=== PATIENT | female | born 1965 | race Two or more races ===

== ENCOUNTER 2017-05-21 18:19 | Inpatient (IN) | payer MEDICAID ==
[~2017-05-21] VITALS: Ht 160 cm; Wt 78.1 kg
[2017-05-21 20:14] LABS: Hematocrit 42.7 % (36.0-46.0); Hemoglobin 14.6 g/dL (12.2-16.2); Mean Corpuscular Hemoglobin 30.3 pg (28.0-32.0); Mean Corpuscular Hgb Conc. 34.3 g/dL (32.0-36.0); Mean Corpuscular Volume 88.6 fL (80.0-100.0); Mean Platelet Volume 8.4 fL (6.9-10.8); Platelet Count (auto) 406 10^3/uL (140-450); Red Cell Distribution Width 12.4 % (11.8-14.3); White Blood Cell 16.6 10^3/uL (4.4-10.8)
[2017-05-21 20:28] LABS: Metamyelocytes % 0; Myelocytes % 0; Promyelocytes % 0; Reactive Lymphocytes 0
[2017-05-21 20:29] LABS: Partial Thromboplastin Time 30.3 sec (22.64-33.71); Prothrombin Time 10.9 sec (9.37-12.3)
[2017-05-21 20:46] LABS: Albumin 3.1 g/dL (3.4-5.0); Alkaline Phosphatase 130 U/L (45-117); Amylase 16 U/L (25-115); Anion Gap 10 (5-15); Aspartate Aminotransferase 12 U/L (15-37); BUN/Creatinine Ratio 11.1; Bilirubin, Total 0.8 mg/dL (0.2-1.0); Blood Urea Nitrogen 8 mg/dL (7-18); Calcium 9.2 mg/dL (8.5-10.1); Carbon Dioxide 25 mmol/L (21-32); Chloride 96 mmol/L (98-107); GFR African American 109 mL/min; GFR Non-African American 90 mL/min; Glucose 203 mg/dL (74-106); Magnesium 2.3 mg/dL (1.6-2.6); Potassium 4.2 mmol/L (3.5-5.1); Sodium 131 mmol/L (136-145); Total Protein 8.9 g/dL (6.4-8.2)
[2017-05-21 20:47] LABS: Giant Platelets Few; Platelet Estimate Adequate
[2017-05-21 20:48] LABS: Platelet Clumps FEW
[2017-05-21 20:49] LABS: Stomatocytes Few
[2017-05-21 22:40] LABS: Lactic Acid w/Reflex 2.2 mmol/L (0.4-2.0)
[2017-05-21 22:44] LABS: REFLEX LACTIC ACID YES OR NO YES
[2017-05-21] MEDS ORDERED: MORPHINE SULF INJ 2 MG/ML SYRINGE 1ML IV ONE (22:45)
[2017-05-21] MEDS ORDERED: cefTRIAXone 1GM/50ML D5W 50 ML IV ONE (22:45)
[2017-05-21] MEDS ORDERED: ONDANSETRON HCL 4 MG/2 ML VIAL IV ONE (22:45)
[2017-05-21] MEDS ORDERED: VANCOMYCIN 1GM/250ML D5W 250 ML IV ONE (22:45)
[2017-05-22] VITALS (10 sets, daily range): BP systolic 88–110; BP diastolic 47–62
[2017-05-22] MEDS ORDERED: MORPHINE SULF INJ 2 MG/ML SYRINGE 1ML IV PRN ×2 (00:30→16:15)
[2017-05-22] MEDS ORDERED: VANCOMYCIN PER PHARMACY 0 MG IV SCH (00:30)
[2017-05-22] MEDS ORDERED: ONDANSETRON HCL 4 MG/2 ML VIAL IV PRN (00:30)
[2017-05-22] MEDS ORDERED: ACETAMINOPHEN 500 MG TAB PO PRN (00:30)
[2017-05-22] MEDS ORDERED: metroNIDAZOLE 500MG/100ML 100 ML IV ONE (00:30)
[2017-05-22] MEDS ORDERED: SODIUM CHLORIDE 0.9% 1,000 ML IV ONE ×2 (00:45→04:15)
[2017-05-22] MEDS ORDERED: DEXTROSE (50%) 50ML SYRG IV PRN ×2 (00:45→16:15)
[2017-05-22] MEDS ORDERED: SODIUM CHLORIDE 0.9% 2,300 ML IV ONE (04:15)
[2017-05-22] MEDS ORDERED: GLIP-116 PO (04:54)
[2017-05-22] MEDS ORDERED: METF-372 PO (04:54)
[2017-05-22] MEDS ORDERED: INSUINJ2 SC (04:54)
[2017-05-22 06:12] LABS: Urine RBC None Seen /hpf (0 - 4)
[2017-05-22] MEDS: ACCU-CHEK COMFORT CURVE STRIP VI SCH ×4 (06:33→23:44)
[2017-05-22] MEDS: InsuLIN REG 1unit/0.01ml Soln (100units/ml) SC SCH ×4 (06:34→23:48)
[2017-05-22 06:40] LABS: Urine Bilirubin Negative (Negative); Urine Blood Negative /uL (Negative); Urine Color Yellow (Yellow); Urine Glucose 1+ mg/dL (Normal); Urine Ketone 1+ (Negative); Urine Mucus FEW (None Seen); Urine Nitrite Negative (Negative); Urine Squamous Epithelial Cell MOD /hpf (<5); Urine Urobilinogen Normal (Negative)
[2017-05-22] MEDS ORDERED: SUCCINYLCHOLINE CHLORIDE 20 MG/ML 10ML VIAL IV ONE (07:18)
[2017-05-22] MEDS ORDERED: fentaNYL CITRATE 100 MCG/2 ML VL ONE ×2 (07:20→09:03)
[2017-05-22] MEDS ORDERED: MIDAZOLAM HCL 1MG/1ML-2 ML VIAL ONE (07:21)
[2017-05-22] MEDS ORDERED: SODIUM CHLORIDE LOCK 20 ML ONE (07:22)
[2017-05-22] MEDS ORDERED: ONDANSETRON HCL 4 MG/2 ML VIAL ONE (07:22)
[2017-05-22] MEDS ORDERED: ROCURONIUM 10MG/ML 10ML VIAL IV ONE (07:22)
[2017-05-22] MEDS ORDERED: MEPERIDINE HCL (50 MG/ML) 1 ML VIAL ONE (07:22)
[2017-05-22] MEDS ORDERED: cefTRIAXone SOD 1,000 MG VL ONE (07:44)
[2017-05-22] MEDS ORDERED: HYDROmorphone HCL 2 MG/ML VL IV PRN (07:45)
[2017-05-22] MEDS ORDERED: METOCLOPRAMIDE HCL 5MG/ml INJ 2ml VIAL IV ONE (07:45)
[2017-05-22] MEDS ORDERED: ACCU-CHEK COMFORT CURVE STRIP VI ONE (07:45)
[2017-05-22] MEDS ORDERED: KETOROLAC TROMETH 30 MG/ML 1ML VIAL IV ONE (07:45)
[2017-05-22] MEDS ORDERED: LIDOCAINE 1% HCL (LOCAL ANESTH.) INJ 20ML MDV ONE (08:05)
[2017-05-22] MEDS ORDERED: BUPIVACAINE 0.25% INJ 50ML VIAL ONE (08:06)
[2017-05-22] MEDS ORDERED: BUPIVACAINE W/ EPINEPH 0.25% INJ 50ML MDV ONE (08:06)
[2017-05-22] MEDS ORDERED: LIDOCAINE W/ EPINEPHRINE 1 % INJ 30ML ONE (08:06)
[2017-05-22] MEDS ORDERED: NEOSTIGMINE 1 MG/ML INJ (10mg/10ML VIAL) ONE (08:29)
[2017-05-22] MEDS ORDERED: KETOROLAC TROMETH 60MG/2ML VIAL IM ONE (08:29)
[2017-05-22] MEDS ORDERED: GLYCOPYRROLATE 0.2 MG/ML 1ML VIAL ONE (08:29)
[2017-05-22] MEDS ORDERED: ceFAZolin 1GM VL ONE (09:16)
[2017-05-22] MEDS ORDERED: PPN PER PHARMACY 0 ML IV SCH (10:15)
[2017-05-22] MEDS: VANCOMYCIN 1GM/250ML D5W 250 ML IV SCH ×2 (11:26→23:17)
[2017-05-22 11:27] LABS: Hematocrit 39.2 % (36.0-46.0); Hemoglobin 12.9 g/dL (12.2-16.2); Mean Corpuscular Hemoglobin 29.7 pg (28.0-32.0); Mean Corpuscular Volume 90.2 fL (80.0-100.0); Mean Platelet Volume 8.3 fL (6.9-10.8); Platelet Count (auto) 307 10^3/uL (140-450); Red Cell Distribution Width 12.7 % (11.8-14.3); White Blood Cell 18.2 10^3/uL (4.4-10.8)
[2017-05-22 11:57] LABS: Metamyelocytes % 0; Myelocytes % 0; Promyelocytes % 0; Reactive Lymphocytes 0
[2017-05-22 12:03] LABS: Albumin 2.2 g/dL (3.4-5.0); BUN/Creatinine Ratio 10.4; Bilirubin, Total 1.2 mg/dL (0.2-1.0); Calcium 7.5 mg/dL (8.5-10.1); Potassium 4.3 mmol/L (3.5-5.1); Total Protein 6.8 g/dL (6.4-8.2)
[2017-05-22 12:08] LABS: Magnesium 1.9 mg/dL (1.6-2.6)
[2017-05-22 12:48] LABS: Platelet Estimate Adequate
[2017-05-22] MEDS ORDERED: DEXTROSE (50%) 50ML SYRG IV SCH (20:00)
[2017-05-22] MEDS ORDERED: PPN PER PHARMACY IV NR ×10 (20:00)
[2017-05-23] MEDS ORDERED: ACCU-CHEK COMFORT CURVE STRIP VI SCH
[2017-05-23] MEDS ORDERED: InsuLIN REG 1unit/0.01ml Soln (100units/ml) SC SCH
[2017-05-23 04:28] VITALS: BP 102/47
[2017-05-23] MEDS: InsuLIN REG 1unit/0.01ml Soln (100units/ml) SC SCH ×4 (05:48→23:57)
[2017-05-23] MEDS: ACCU-CHEK COMFORT CURVE STRIP VI SCH ×4 (05:48→23:57)
[2017-05-23 06:32] LABS: Basophils # (auto) 0 uL; Basophils % (auto) 0.1 % (0.0-2.0); Eosinophils # (auto) 0 uL; Hemoglobin 11.5 g/dL (12.2-16.2); Lymphocytes # (auto) 0.9 uL; Lymphocytes % (auto) 5.1 % (10.0-50.0); Mean Corpuscular Hemoglobin 29.2 pg (28.0-32.0); Mean Corpuscular Hgb Conc. 32.8 g/dL (32.0-36.0); Mean Corpuscular Volume 88.9 fL (80.0-100.0); Mean Platelet Volume 9.1 fL (6.9-10.8); Monocytes # (auto) 0.6 uL; Monocytes % (auto) 3.4 % (0.0-12.0); Neutrophils % (auto) 91.4 % (37.0-80.0); Platelet Count (auto) 333 10^3/uL (140-450); Red Cell Distribution Width 12.2 % (11.8-14.3); White Blood Cell 17.5 10^3/uL (4.4-10.8)
[2017-05-23 06:50] LABS: Albumin 2.1 g/dL (3.4-5.0); Calcium 8.7 mg/dL (8.5-10.1); Magnesium 2.7 mg/dL (1.6-2.6)
[2017-05-23 06:53] LABS: BUN/Creatinine Ratio 17.2
[2017-05-23 06:55] LABS: Bilirubin, Total 1.1 mg/dL (0.2-1.0); Total Protein 6.4 g/dL (6.4-8.2)
[2017-05-23] MEDS ORDERED: ETOMIDATE (2MG/ML) 20ML VIAL IV ONE (07:52)
[2017-05-23 08:00] VITALS: BP 118/56
[2017-05-23 08:00] LABS: Phosphorus 1.5 mg/dL (2.5-4.90)
[2017-05-23] MEDS: PIPERACILLIN-TAZOB 3.375GM/D5W100ML IV SCH ×3 (08:57→20:05)
[2017-05-23 09:00] VITALS: BP 118/56
[2017-05-23] MEDS ORDERED: metroNIDAZOLE 250MG/50 ML 50 ML IV ONE (10:00)
[2017-05-23] MEDS ORDERED: SODIUM PHOSP 20MEQ(15MMOL) IN NS 100 ML IV ONE (11:15)
[2017-05-23] MEDS: VANCOMYCIN 1GM/250ML D5W 250 ML IV SCH ×2 (12:10→23:10)
[2017-05-23 13:00] VITALS: BP 110/64
[2017-05-23] MEDS: metroNIDAZOLE 250MG/50 ML 50 ML IV SCH ×2 (15:57→21:52)
[2017-05-23 17:44] VITALS: BP 132/49
[2017-05-23] MEDS ORDERED: PPN PER PHARMACY IV NR ×8 (20:00)
[2017-05-23 22:08] VITALS: BP 105/52
[2017-05-24] MEDS: PIPERACILLIN-TAZOB 3.375GM/D5W100ML IV SCH ×4 (01:32→20:00)
[2017-05-24 04:42] VITALS: BP 118/57
[2017-05-24] MEDS: metroNIDAZOLE 250MG/50 ML 50 ML IV SCH ×3 (05:33→21:49)
[2017-05-24] MEDS: ACCU-CHEK COMFORT CURVE STRIP VI SCH ×4 (05:34→21:57)
[2017-05-24] MEDS: InsuLIN REG 1unit/0.01ml Soln (100units/ml) SC SCH ×4 (05:34→22:18)
[2017-05-24 06:16] LABS: Basophils # (auto) 0 uL; Basophils % (auto) 0.2 % (0.0-2.0); Eosinophils # (auto) 0 uL; Eosinophils % (auto) 0.2 % (0.0-7.0); Hematocrit 33.3 % (36.0-46.0); Hemoglobin 11.1 g/dL (12.2-16.2); Lymphocytes # (auto) 2.4 uL; Lymphocytes % (auto) 17.9 % (10.0-50.0); Mean Corpuscular Hemoglobin 29.6 pg (28.0-32.0); Mean Corpuscular Hgb Conc. 33.3 g/dL (32.0-36.0); Monocytes # (auto) 0.6 uL; Monocytes % (auto) 4.1 % (0.0-12.0); Neutrophils # (auto) 10.6 uL; Neutrophils % (auto) 77.6 % (37.0-80.0); Platelet Count (auto) 334 10^3/uL (140-450); Red Cell Distribution Width 12.5 % (11.8-14.3); White Blood Cell 13.6 10^3/uL (4.4-10.8)
[2017-05-24 07:01] LABS: BUN/Creatinine Ratio 18.8; Bilirubin, Total 0.6 mg/dL (0.2-1.0); Magnesium 2.2 mg/dL (1.6-2.6); Potassium 3.4 mmol/L (3.5-5.1); Total Protein 6.4 g/dL (6.4-8.2)
[2017-05-24 08:00] VITALS: BP 116/67
[2017-05-24 08:23] VITALS: BP 116/67
[2017-05-24] MEDS ORDERED: POTASSIUM PHOSPHATE 44 MEQ in SODIUM CHL 0.9% 250 ML IV ONE (09:30)
[2017-05-24] MEDS ORDERED: POTASSIUM CHLORIDE 40 MEQ, LIDOCAINE 1% (LOCAL ANESTH.) 4 ML in SODIUM CHL 0.9% 250 ML IV ONE (10:30)
[2017-05-24] MEDS: VANCOMYCIN 1GM/250ML D5W 250 ML IV SCH (10:52)
[2017-05-24 13:00] VITALS: BP 120/56
[2017-05-24] MEDS ORDERED: DEXTROSE (50%) 50ML SYRG IV PRN (14:30)
[2017-05-24 16:58] VITALS: BP 126/73
[2017-05-24] MEDS ORDERED: PPN PER PHARMACY IV NR ×11 (20:00)
[2017-05-24 22:10] VITALS: BP 117/85
[2017-05-25] MEDS: PIPERACILLIN-TAZOB 3.375GM/D5W100ML IV SCH ×4 (02:04→20:25)
[2017-05-25] MEDS: HYDROcodone-ACET 5/325MG TAB PO PRN ×3 (02:04→22:34)
[2017-05-25 05:05] VITALS: BP 120/66
[2017-05-25] MEDS: metroNIDAZOLE 250MG/50 ML 50 ML IV SCH ×3 (06:00→22:34)
[2017-05-25 06:31] LABS: Basophils # (auto) 0.1 uL; Basophils % (auto) 0.6 % (0.0-2.0); Eosinophils # (auto) 0 uL; Eosinophils % (auto) 0.3 % (0.0-7.0); Hematocrit 37.6 % (36.0-46.0); Hemoglobin 12.6 g/dL (12.2-16.2); Lymphocytes # (auto) 1.8 uL; Lymphocytes % (auto) 18.3 % (10.0-50.0); Mean Corpuscular Hemoglobin 29.6 pg (28.0-32.0); Mean Corpuscular Hgb Conc. 33.5 g/dL (32.0-36.0); Mean Corpuscular Volume 88.1 fL (80.0-100.0); Monocytes # (auto) 0.6 uL; Monocytes % (auto) 6.3 % (0.0-12.0); Neutrophils # (auto) 7.3 uL; Neutrophils % (auto) 74.5 % (37.0-80.0); Platelet Count (auto) 409 10^3/uL (140-450); Red Cell Distribution Width 12.8 % (11.8-14.3); White Blood Cell 9.8 10^3/uL (4.4-10.8)
[2017-05-25] MEDS: ACCU-CHEK COMFORT CURVE STRIP VI SCH ×4 (06:44→22:18)
[2017-05-25] MEDS: InsuLIN REG 1unit/0.01ml Soln (100units/ml) SC SCH ×4 (06:46→22:34)
[2017-05-25 07:06] LABS: Albumin 2.2 g/dL (3.4-5.0); BUN/Creatinine Ratio 15.2; Bilirubin, Total 0.7 mg/dL (0.2-1.0); Calcium 8.6 mg/dL (8.5-10.1); Magnesium 1.9 mg/dL (1.6-2.6); Phosphorus 3.2 mg/dL (2.5-4.90); Potassium 3.4 mmol/L (3.5-5.1)
[2017-05-25 08:07] VITALS: BP 121/65
[2017-05-25] MEDS ORDERED: POTASSIUM CHLORIDE 40 MEQ, LIDOCAINE 1% (LOCAL ANESTH.) 4 ML in SODIUM CHL 0.9% 250 ML IV ONE (11:00)
[2017-05-25 13:16] VITALS: BP 134/68
[2017-05-25 16:53] VITALS: BP 123/62
[2017-05-25 21:57] VITALS: BP 112/57
[2017-05-26] MEDS: PIPERACILLIN-TAZOB 3.375GM/D5W100ML IV SCH ×3 (02:29→14:00)
[2017-05-26 05:12] VITALS: BP 111/56
[2017-05-26 05:45] LABS: Basophils # (auto) 0 uL; Basophils % (auto) 0.3 % (0.0-2.0); Eosinophils # (auto) 0.1 uL; Eosinophils % (auto) 1.7 % (0.0-7.0); Hematocrit 38.4 % (36.0-46.0); Lymphocytes # (auto) 2.4 uL; Lymphocytes % (auto) 27.9 % (10.0-50.0); Mean Corpuscular Hemoglobin 29.8 pg (28.0-32.0); Mean Corpuscular Hgb Conc. 33.9 g/dL (32.0-36.0); Mean Corpuscular Volume 87.9 fL (80.0-100.0); Mean Platelet Volume 8.6 fL (6.9-10.8); Monocytes # (auto) 0.5 uL; Monocytes % (auto) 6.1 % (0.0-12.0); Neutrophils # (auto) 5.5 uL; Platelet Count (auto) 450 10^3/uL (140-450); Red Cell Distribution Width 12.5 % (11.8-14.3); White Blood Cell 8.5 10^3/uL (4.4-10.8)
[2017-05-26 06:00] LABS: Albumin 2.2 g/dL (3.4-5.0); BUN/Creatinine Ratio 9.6; Calcium 8.5 mg/dL (8.5-10.1); Potassium 3.6 mmol/L (3.5-5.1)
[2017-05-26 06:03] LABS: Bilirubin, Total 0.8 mg/dL (0.2-1.0); Total Protein 6.7 g/dL (6.4-8.2)
[2017-05-26] MEDS: ACCU-CHEK COMFORT CURVE STRIP VI SCH ×2 (06:21→11:07)
[2017-05-26] MEDS: InsuLIN REG 1unit/0.01ml Soln (100units/ml) SC SCH ×2 (06:33→11:07)
[2017-05-26] MEDS: metroNIDAZOLE 250MG/50 ML 50 ML IV SCH ×2 (06:48→14:00)
[2017-05-26 09:57] VITALS: BP 121/79
[2017-05-26 11:58] VITALS: BP 121/58
[2017-05-26] MEDS: HYDROcodone-ACET 5/325MG TAB PO PRN (14:11)
== END 2017-05-26 16:32 | disposition home or self-care (01) | DRG 710 ==
LOC: ER 18:19 → WEST WING 18:20 → TELE-WESTW 05-22 11:21
PROVIDERS: ADMIT Nurse Practitioner Family; ATTEND Internal Medicine
PROC: 0DJD4ZZ Inspection of Lower Intestinal Tract, Percutaneous Endoscopic Approach (ICD-10-PCS; 2017-05-22)
PROC: 0DN80ZZ Release Small Intestine, Open Approach (ICD-10-PCS; 2017-05-22)
PROC: 0DTJ0ZZ Resection of Appendix, Open Approach (ICD-10-PCS; principal; 2017-05-22 07:52)
DX: A41.9 Sepsis, unspecified organism (principal); E43 Unspecified severe protein-calorie malnutrition; E87.1 Hypo-osmolality and hyponatremia; K35.3 Acute appendicitis with localized peritonitis; K59.00 Constipation, unspecified; K66.0 Peritoneal adhesions (postprocedural) (postinfection); E11.9 Type 2 diabetes mellitus without complications; Z68.30 Body mass index [BMI] 30.0-30.9, adult; Z79.84 Long term (current) use of oral hypoglycemic drugs
CPT/HCPCS: 36415; 71010; 74176; 80053; 80202; 81001; 81025; 82040; 82150; 82962; 83036; 83605; 83690; 83735; 84100; 84478; 84484; 84702; 85007; 85025; 85027; 85610; 85730; 87040; 93005; 96365; 96367; 96375; J0330; J0690; J0696; J1815; J1885; J2001; J2250; J2405; J2543; J3490

== ENCOUNTER 2018-11-27 20:06 | Emergency (ER) | payer MEDICAID ==
[~2018-11-27] VITALS: Ht 162.6 cm; Wt 70.8 kg
[~2018-11-27 20:06] MED LIST: GLIP-116 PO; INSUINJ2 SC; METF-372 PO
[2018-11-27 21:14] LABS: Basophils # (auto) 0 uL; Basophils % (auto) 0.4 % (0.0-2.0); Eosinophils # (auto) 0.1 uL; Eosinophils % (auto) 1.6 % (0.0-7.0); Hemoglobin 15.5 g/dL (12.2-16.2); Lymphocytes # (auto) 2.1 uL; Lymphocytes % (auto) 30.5 % (10.0-50.0); Mean Corpuscular Hemoglobin 29.9 pg (28.0-32.0); Mean Corpuscular Hgb Conc. 33.8 g/dL (32.0-36.0); Mean Corpuscular Volume 88.6 fL (80.0-100.0); Monocytes # (auto) 0.3 uL; Monocytes % (auto) 4.8 % (0.0-12.0); Neutrophils # (auto) 4.4 uL; Neutrophils % (auto) 62.7 % (37.0-80.0); Nucleated Red Blood Cells % 0.1 %; Platelet Count (auto) 291 10^3/uL (140-450); Red Cell Distribution Width 12.5 % (11.8-14.3)
[2018-11-27 21:26] LABS: Albumin 3.8 g/dL (3.4-5.0); Calcium 9.2 mg/dL (8.5-10.1); Potassium 3.9 mmol/L (3.5-5.1)
[2018-11-27 21:28] LABS: BUN/Creatinine Ratio 20.7
[2018-11-27 21:30] LABS: INR 0.88 (0.9-1.15); Partial Thromboplastin Time 24.3 sec (23.78-33.04); Prothrombin Time 9.5 sec (9.27-12.13)
[2018-11-27 21:31] LABS: Bilirubin, Total 0.4 mg/dL (0.2-1.0); Total Protein 8.6 g/dL (6.4-8.2)
[2018-11-28 06:24] VITALS: BP 100/61
== END 2018-11-28 06:25 | disposition home or self-care (01) ==
LOC: ER 20:09
DX: G51.0 Bell's palsy (principal); M47.892 Other spondylosis, cervical region; E11.65 Type 2 diabetes mellitus with hyperglycemia
CPT/HCPCS: 36415; 70450; 72125; 80053; 82962; 85025; 85610; 85730; 94761

== ENCOUNTER → 2023-03-27 | Outpatient (CLI) | payer MEDICAID ==
[~2023-03-27] MED LIST changes: -GLIP-116 PO; +GLIP10TA9 PO
[2023-03-27 12:18] LABS: Folate (Folic Acid) 17.26 ng/mL (5.38-24)
[2023-03-27 12:23] LABS: Urine Bacteria FEW /hpf (None Seen); Urine Blood Negative /uL (Negative); Urine Mucus FEW (None Seen); Urine Specific Gravity 1.029 (1.001-1.035); Urine WBC 4 /hpf (0 - 5)
[2023-03-27 12:28] LABS: Potassium 3.9 mmol/L (3.5-5.1)
[2023-03-27 12:41] LABS: Albumin 3.6 g/dL (3.4-5.0); BUN/Creatinine Ratio 14.6 (10.0-20.0); Bilirubin, Total 0.6 mg/dL (0.2-1.0); Calcium 9.2 mg/dL (8.5-10.1)
[2023-03-27 12:59] LABS: Micro Albumin 31.4 mg/L (0-30.0)
== END | disposition home or self-care (01) ==
LOC: LAB 11:10
PROVIDERS: ATTEND Student in an Organized Health Care Education/Training Program
DX: Z12.11 Encounter for screening for malignant neoplasm of colon (principal); E78.5 Hyperlipidemia, unspecified; E11.65 Type 2 diabetes mellitus with hyperglycemia; Z86.39 Personal history of other endocrine, nutritional and metabolic disease; Z79.899 Other long term (current) drug therapy
CPT/HCPCS: 36415; 80053; 80061; 81001; 82043; 82306; 82570; 82607; 82746; 83036; 84436; 84443

== ENCOUNTER → 2023-08-11 | Outpatient (CLI) | payer MEDICAID ==
[2023-08-11 12:54] LABS: Basophils # (auto) 0 10 ^3/uL (0-0.2); Basophils % (auto) 0.3 % (0.0-2.0); Eosinophils # (auto) 0.2 10 ^3/uL (0-0.8); Eosinophils % (auto) 3.2 % (0.0-7.0); Hematocrit 45.7 % (36.0-46.0); Hemoglobin 15.2 g/dL (12.2-16.2); Lymphocytes % (auto) 28.4 % (10.0-50.0); Mean Corpuscular Hgb Conc. 33.3 g/dL (32.0-36.0); Mean Corpuscular Volume 90.1 fL (80.0-100.0); Monocytes # (auto) 0.4 10 ^3/uL (0-1.3); Monocytes % (auto) 5.8 % (0.0-12.0); Neutrophils # (auto) 4.3 10 ^3/uL (1.6-8.6); Neutrophils % (auto) 62.3 % (37.0-80.0); Nucleated Red Blood Cells % 0.1 %; Red Blood Cells 5.07 10^6/uL (4.0-5.20); Red Cell Distribution Width 12.9 % (11.8-14.3); White Blood Cell 6.9 10^3/uL (4.4-10.8)
[2023-08-11 13:40] LABS: Alanine Aminotransferase 34 U/L (7-40); Albumin 4.4 g/dL (3.2-4.8); Alkaline Phosphatase 83 U/L (46-116); Anion Gap 10 (5-15); Aspartate Aminotransferase 25 U/L (13-40); BUN/Creatinine Ratio 12.7 (10.0-20.0); Bilirubin, Total 0.7 mg/dL (0.2-1.0); Blood Urea Nitrogen 10 mg/dL (9-23); Calcium 9.6 mg/dL (8.5-10.1); Carbon Dioxide 24 mmol/L (20-30); Chloride 107 mmol/L (98-107); Cholesterol 176 mg/dL (< 200); Glucose 138 mg/dL (74-106); HDL Cholesterol 39 mg/dL (40-59); LDL Cholesterol 121 mg/dL (< 100); Potassium 4.7 mmol/L (3.5-5.1); Sodium 141 mmol/L (136-145); Total Protein 7.6 g/dL (5.7-8.2); Triglycerides 150 mg/dL (< 150)
[2023-08-11 15:50] LABS: Urine Bacteria NONE SEEN /hpf (None Seen); Urine Blood Negative /uL (Negative); Urine Clarity HAZY (Clear); Urine Color Yellow (Yellow); Urine Hyaline Cast FEW /lpf (0 - 2); Urine Mucus FEW (None Seen); Urine Protein, UAD 1+ (Negative); Urine Specific Gravity 1.023 (1.001-1.035); Urine Urobilinogen Normal (Negative); Urine WBC 35 /hpf (0 - 5); Urine pH 5.5 (5.0-8.0)
== END | disposition home or self-care (01) ==
LOC: LAB 12:38
PROVIDERS: ATTEND Student in an Organized Health Care Education/Training Program
DX: E11.42 Type 2 diabetes mellitus with diabetic polyneuropathy (principal); E11.65 Type 2 diabetes mellitus with hyperglycemia; E03.9 Hypothyroidism, unspecified
CPT/HCPCS: 36415; 80053; 80061; 81001; 82306; 83036; 84436; 84443; 85025

== ENCOUNTER → 2024-08-01 | Outpatient (CLI) | payer MEDICAID ==
[2024-08-01 12:16] LABS: Urine Bacteria None Seen /hpf (None Seen)
[2024-08-01 12:25] LABS: Basophils # (auto) 0 10 ^3/uL (0-0.2); Basophils % (auto) 0.4 % (0.0-2.0); Eosinophils # (auto) 0.1 10 ^3/uL (0-0.8); Eosinophils % (auto) 2.2 % (0.0-7.0); Hematocrit 44.7 % (36.0-46.0); Hemoglobin 15.4 g/dL (12.2-16.2); Lymphocytes # (auto) 1.8 10 ^3/uL (0.4-5.4); Lymphocytes % (auto) 33.3 % (10.0-50.0); Mean Corpuscular Hemoglobin 30.6 pg (28.0-32.0); Mean Corpuscular Hgb Conc. 34.5 g/dL (32.0-36.0); Mean Corpuscular Volume 88.7 fL (80.0-100.0); Monocytes # (auto) 0.3 10 ^3/uL (0-1.3); Monocytes % (auto) 4.9 % (0.0-12.0); Neutrophils # (auto) 3.2 10 ^3/uL (1.6-8.6); Neutrophils % (auto) 59.2 % (37.0-80.0); Platelet Count (auto) 270 10^3/uL (140-450); Red Blood Cells 5.03 10^6/uL (4.0-5.20); Red Cell Distribution Width 12.6 % (11.8-14.3); White Blood Cell 5.4 10^3/uL (4.4-10.8)
[2024-08-01 12:41] LABS: Urine Blood Negative /uL (Negative); Urine Clarity Clear (Clear); Urine Color Yellow (Yellow); Urine Protein, UAD Negative (Negative); Urine Specific Gravity 1.027 (1.001-1.035); Urine Urobilinogen Normal (Negative); Urine WBC 1 /hpf (0 - 5); Urine pH 5.5 (5.0-9.0)
[2024-08-01 13:11] LABS: Alanine Aminotransferase 25 U/L (7-40); Albumin 4.3 g/dL (3.2-4.8); Alkaline Phosphatase 92 U/L (46-116); Anion Gap 5 (5-15); Aspartate Aminotransferase 18 U/L (13-40); BUN/Creatinine Ratio 12.2 (10.0-20.0); Blood Urea Nitrogen 11 mg/dL (9-23); Calcium 10.1 mg/dL (8.7-10.4); Carbon Dioxide 30 mmol/L (20-31); Chloride 102 mmol/L (98-107); HDL Cholesterol 47 mg/dL (40-59); Potassium 4.7 mmol/L (3.5-5.1); Sodium 137 mmol/L (136-145)
[2024-08-01 13:12] LABS: Bilirubin, Total 0.6 mg/dL (0.2-1.0); Total Protein 7.8 g/dL (5.7-8.2)
[2024-08-01 13:14] LABS: Cholesterol 272 mg/dL (< 200); Glucose 337 mg/dL (74-106); LDL Cholesterol 179 mg/dL (< 100); Triglycerides 220 mg/dL (< 150)
[2024-08-01 13:40] LABS: Creatinine, Urine 94.31 mg/dL (30.0-125.0)
== END | disposition home or self-care (01) ==
LOC: LAB 11:55
PROVIDERS: ATTEND Student in an Organized Health Care Education/Training Program
DX: Z12.11 Encounter for screening for malignant neoplasm of colon (principal); E11.9 Type 2 diabetes mellitus without complications; I10 Essential (primary) hypertension; E55.9 Vitamin D deficiency, unspecified
CPT/HCPCS: 36415; 80053; 80061; 81001; 82043; 82306; 82570; 83036; 84443; 85025